=== PATIENT | male | born 1950 ===

== ENCOUNTER 2017-02-12 17:50 | Inpatient (IN) ==
[2017-02-12] MEDS ORDERED: 0.9 % Sodium Chloride 1,000 ML IVC ONE ×3 (17:56→20:33)
[2017-02-12] MEDS ORDERED: *HR* Alteplase (Cathflo) 2 MG VIAL IVP ONE (17:58)
--- NOTE | 2017-02-12 19:04 | Emergency Department Note ---
Disposition Clinical Impression: Septic shock Disposition: Admitted As Inpatient Referrals: NO,PCP [Primary Care Provider] - Forms: ED Satisfaction Letter, Work/School Release General Adult HPI - General Chief complaint: ED General Medical Stated complaint: PICC line not working Time Seen by Provider: 02/12/17 17:53 Source: patient Limitations: no limitations Nursing Notes Reviewed: Yes Vital Signs Reviewed: Yes - History of Present Illness HPI Narrative: Patient comes in today due to dysfunction of his PICC line. Patient receives TPN through his PICC line and the daughter noted that the confusion has stopped and was beeping. She attempted to flush the PICC line but was unsuccessful. Daughter also states notes that patient states that he is at problems with burning with urination. Patient denies pain denies shortness of breath. Patient denies cough associated. Per nursing report patient is tachycardic and is a little blood pressure. Pain Scale: 0 - Related Data Home Medications Medication Instructions Recorded Confirmed Acetaminophen [Tylenol] 1,000 mg PO Q6HR 09/09/16 09/09/16 Aspirin [Lo-Dose Aspirin EC] 81 mg PO DAILY 09/09/16 09/09/16 Docusate [Colace] 100 mg PO BID 09/09/16 09/09/16 Febuxostat [Uloric] 20 mg PO DAILY 09/09/16 09/09/16 Ibuprofen [Motrin] 400 mg PO Q6HR 09/09/16 09/09/16 Nitrofurantoin Macrocrystal 100 mg PO BID 09/09/16 09/09/16 [Nitrofurantoin] OxyCODONE/APAP 5/325 [Percocet 1 each PO Q6HR PRN 09/09/16 09/09/16 5/325 MG] Simethicone [Gas-X] 540 mg PO 09/09/16 Valsartan/Hydrochlorothiazide 0.5 tab PO DAILY 09/09/16 09/09/16 [Diovan Hct 160-25 mg Tablet] Previous Rx's Medication Instructions Recorded Amoxicillin/Clavulanate [Augmentin] 875 mg PO BIDWM #10 tablet 09/09/16 Allergies Allergy/AdvReac Type Severity Reaction Status Date / Time No Known Allergies Allergy Verified 09/09/16 17:57 All systems ED: reviewed and negative except as stated. Past Medical History - Past Medical History Source: patient Medical history: Reports: hypertension Psychiatric history: Reports: no psych history - Social History Smoking Status: Never smoker Smokeless Tobacco Status: No Alcohol use: Reports: none Drug use: Reports: none Physical Exam - General Limitations: altered mental status General appearance: alert - Head Head exam: atraumatic, normocephalic, normal inspection - Eye Eye exam: Present: normal appearance, PERRL, EOMI - ENT ENT exam: normal exam, normal oropharynx, mucous membranes moist Course Vital Signs Temperature 97.5 F L 02/12/17 18:00 Pulse Rate 108 02/12/17 18:00 Respiratory Rate 24 02/12/17 18:00 Blood Pressure 81/52 02/12/17 18:00 O2 Sat by Pulse Oximetry 95 02/12/17 18:00 Temperature 98.3 F 02/12/17 23:22 Pulse Rate 98 02/13/17 00:04 Respiratory Rate 22 02/13/17 00:04 Blood Pressure 103/53 02/13/17 00:04 O2 Sat by Pulse Oximetry 97 02/13/17 00:04 Oxygen Delivery Oxygen Delivery Room Air Procedures - Central Line Placement Right IJ Central Line Catheter Replacement*: Yes Central Line Insertion: emergent Consent Obtained: written consent Procedural Pause: verify patient name and date of , khadijah and assess the site, assemble equipment and verify supplies, perform hand hygiene Patient Placed on Monitor/Pulse Ox: Yes During the Procedure: clinician is wearing sterile gloves, cap, mask,& gown during insertion, sterile field and sterile technique are maintained, patient's face is covered with drape or mask and wearing a cap, everyone in room is wearing a mask Central Line Prep: Chlorhexidine scrub Prep the Procedure Site: apply chloraprep to the skin using a back and forth scrubbing motion, drape the patient with a full body drape Local Anesthetic: lidocaine 1% Amount of anesthesia used (mL): 3 Ultrasound Used for Placement: Yes Central Line Lumen Inserted: triple Post Procedure: sutured in place, good blood return, all ports aspirated, flushed, capped, sterile dressing applied, guide wire removed and visualized Post Procedure X-Ray: tip of catheter in good position, no pneumothorax seen Patient Tolerated Procedure: well Complications: none Name of Clinician Inserting Central Line: Dr. Burt placed the central line under direct supervision Dr. Jose Medical Decision Making - MDM Narrative Medical decision making narrative: Discussed this patient hospitalist service. The hospitalist was concerned about patient's medical problems and discussed the patient will be better served at his original hospital. Discussed to the patient to discuss with his doctor at [facility] who stated the patient is a here and the patient prefers to stay at this facility. I relayed this to the hospitalist direct sales professional who agreed to accept the patient and we will request the records from his previous hospital stay. - Lab Data Lab results reviewed: Yes I reviewed the patient's lab results. Result diagrams: 02/12/17 19:30 02/12/17 19:30 Lab Results 02/12/17 02/12/17 02/12/17 Range/Units 19:30 19:30 19:30 WBC 11.2 H (4.3-11.1) K/mcL RBC 3.67 L (4.19-5.50) M/mcL Hgb 10.1 L (12.9-16.9) g/dL Hct 32.3 L (37.5-50.1) % MCV 88.0 (83.0-100.0) fL MCH 27.5 L (28.0-33.3) pg MCHC 31.3 L (31.6-35.5) g/dL RDW 14.7 H (11.5-14.5) % Plt Count 146 (140-400) K/mcL MPV 10.5 (9.4-12.4) fL Seg Neutrophils % 68.0 % Band Neutrophils % 27.0 H (0-4) % Lymphocytes % 1.0 % Monocytes % 1.0 % Eosinophils % 2.0 % Myelocytes % 1.0 H (0) % Neutrophils # 10.6 H (1.6-8.9) K/mcL Lymphocytes # 0.1 L (0.6-4.6) K/mcL Monocytes # 0.1 (0.0-1.3) K/mcL Eosinophils # 0.2 (0.0-0.6) K/mcL Platelet Estimate Normal (Normal) Large Platelets Present A (Not Present) PT 11.2 (9.4-12.1) Seconds INR 1.0 APTT 25.0 L (26.0-36.0) Seconds ABG pH (7.32-7.45) pH Units ABG pCO2 (35-45) mmHg ABG pO2 (85-104) mmHg ABG HCO3 (21-27) mEQ/L ABG Total CO2 (20-26) mEq/L ABG O2 Saturation (95-98) % ABG Base Excess (-2.0 to 3.0) mEq/L Blood Gas Modality Inspired O2 % Sodium 133 L (136-145) mEq/L Potassium 3.0 L (3.5-4.5) mEq/L Chloride 104 (98-109) mEq/L Carbon Dioxide 17 L (19-29) mEq/L BUN 33 H (8-26) mg/dL Creatinine 1.61 H (0.72-1.25) mg/dL Est GFR ( Amer) 52 L (> 60) Est GFR (Non-Af Amer) 43 L (> 60) BUN/Creatinine Ratio 20 (6-26) Glucose 71 (70-99) mg/dL Calculated Osmolality 282 (280-300) Lactic Acid (0.5-2.2) mmol/L Calcium 9.4 (8.6-10.8) mg/dL Phosphorus 1.6 L (2.3-4.7) mg/dL Magnesium 1.3 L (1.6-2.6) mg/dL Total Bilirubin 1.8 H (0.2-1.2) mg/dL Direct Bilirubin 1.2 H (0.0-0.5) mg/dL Indirect Bilirubin 0.6 (0.0-1.2) mg/dL AST 35 H (5-34) Units/L ALT 37 (0-55) Units/L Alkaline Phosphatase 234 H (38-126) Units/L Troponin I (0-0.03) ng/mL Serum Total Protein 6.6 (6.0-8.3) g/dL Albumin 2.2 L (3.5-5.0) g/dL Globulin 4.4 H (2.4-3.5) g/dL Albumin/Globulin Ratio 0.5 L (1.1-2.2) Ur Specimen Adequacy Urine Color (Yellow) Urine Clarity (Clear) Urine pH (5.0-8.0) pH Units Ur Specific [place] (1.010-1.025) Urine Protein (Neg-Trace) mg/dL Urine Glucose (UA) (Normal) mg/dL Urine Ketones (Negative) mg/dL Urine Blood (Negative) Urine Nitrite (Negative) Urine Bilirubin (Negative) Urine Urobilinogen (Normal) mg/dL Ur Leukocyte Esterase (Negative) Urine Microscopic RBC (0-3) per hpf Urine Microscopic WBC (0-3) per hpf Ur Squamous Epith Cells (None-Few) per lpf Amorphous Sediment (Few) Urine Bacteria (None-Few) per hpf Hyaline Casts Granular Casts (None Seen) per lpf Ur Culture Indicated? (NO) Blood Type Antibody Screen 02/12/17 02/12/17 02/12/17 Range/Units 19:30 19:30 19:30 WBC (4.3-11.1) K/mcL RBC (4.19-5.50) M/mcL Hgb (12.9-16.9) g/dL Hct (37.5-50.1) % MCV (83.0-100.0) fL MCH (28.0-33.3) pg MCHC (31.6-35.5) g/dL RDW (11.5-14.5) % Plt Count (140-400) K/mcL MPV (9.4-12.4) fL Seg Neutrophils % % Band Neutrophils % (0-4) % Lymphocytes % % Monocytes % % Eosinophils % % Myelocytes % (0) % Neutrophils # (1.6-8.9) K/mcL Lymphocytes # (0.6-4.6) K/mcL Monocytes # (0.0-1.3) K/mcL Eosinophils # (0.0-0.6) K/mcL Platelet Estimate (Normal) Large Platelets (Not Present) PT (9.4-12.1) Seconds INR APTT (26.0-36.0) Seconds ABG pH (7.32-7.45) pH Units ABG pCO2 (35-45) mmHg ABG pO2 (85-104) mmHg ABG HCO3 (21-27) mEQ/L ABG Total CO2 (20-26) mEq/L ABG O2 Saturation (95-98) % ABG Base Excess (-2.0 to 3.0) mEq/L Blood Gas Modality Inspired O2 % Sodium (136-145) mEq/L Potassium (3.5-4.5) mEq/L Chloride (98-109) mEq/L Carbon Dioxide (19-29) mEq/L BUN (8-26) mg/dL Creatinine (0.72-1.25) mg/dL Est GFR ( Amer) (> 60) Est GFR (Non-Af Amer) (> 60) BUN/Creatinine Ratio (6-26) Glucose (70-99) mg/dL Calculated Osmolality (280-300) Lactic Acid 4.9 H* (0.5-2.2) mmol/L Calcium (8.6-10.8) mg/dL Phosphorus (2.3-4.7) mg/dL Magnesium (1.6-2.6) mg/dL Total Bilirubin (0.2-1.2) mg/dL Direct Bilirubin (0.0-0.5) mg/dL Indirect Bilirubin (0.0-1.2) mg/dL AST (5-34) Units/L ALT (0-55) Units/L Alkaline Phosphatase (38-126) Units/L Troponin I 0.25 H* (0-0.03) ng/mL Serum Total Protein (6.0-8.3) g/dL Albumin (3.5-5.0) g/dL Globulin (2.4-3.5) g/dL Albumin/Globulin Ratio (1.1-2.2) Ur Specimen Adequacy Urine Color (Yellow) Urine Clarity (Clear) Urine pH (5.0-8.0) pH Units Ur Specific [place] (1.010-1.025) Urine Protein (Neg-Trace) mg/dL Urine Glucose (UA) (Normal) mg/dL Urine Ketones (Negative) mg/dL Urine Blood (Negative) Urine Nitrite (Negative) Urine Bilirubin (Negative) Urine Urobilinogen (Normal) mg/dL Ur Leukocyte Esterase (Negative) Urine Microscopic RBC (0-3) per hpf Urine Microscopic WBC (0-3) per hpf Ur Squamous Epith Cells (None-Few) per lpf Amorphous Sediment (Few) Urine Bacteria (None-Few) per hpf Hyaline Casts Granular Casts (None Seen) per lpf Ur Culture Indicated? (NO) Blood Type O NEGATIVE Antibody Screen NEGATIVE 02/12/17 02/12/17 Range/Units 20:37 20:50 WBC (4.3-11.1) K/mcL RBC (4.19-5.50) M/mcL Hgb (12.9-16.9) g/dL Hct (37.5-50.1) % MCV (83.0-100.0) fL MCH (28.0-33.3) pg MCHC (31.6-35.5) g/dL RDW (11.5-14.5) % Plt Count (140-400) K/mcL MPV (9.4-12.4) fL Seg Neutrophils % % Band Neutrophils % (0-4) % Lymphocytes % % Monocytes % % Eosinophils % % Myelocytes % (0) % Neutrophils # (1.6-8.9) K/mcL Lymphocytes # (0.6-4.6) K/mcL Monocytes # (0.0-1.3) K/mcL Eosinophils # (0.0-0.6) K/mcL Platelet Estimate (Normal) Large Platelets (Not Present) PT (9.4-12.1) Seconds INR APTT (26.0-36.0) Seconds ABG pH 7.46 H (7.32-7.45) pH Units ABG pCO2 28 L (35-45) mmHg ABG pO2 73 L (85-104) mmHg ABG HCO3 19.9 L (21-27) mEQ/L ABG Total CO2 20.8 (20-26) mEq/L ABG O2 Saturation 95 (95-98) % ABG Base Excess -3.3 L (-2.0 to 3.0) mEq/L Blood Gas Modality RA Inspired O2 21 % Sodium (136-145) mEq/L Potassium (3.5-4.5) mEq/L Chloride (98-109) mEq/L Carbon Dioxide (19-29) mEq/L BUN (8-26) mg/dL Creatinine (0.72-1.25) mg/dL Est GFR ( Amer) (> 60) Est GFR (Non-Af Amer) (> 60) BUN/Creatinine Ratio (6-26) Glucose (70-99) mg/dL Calculated Osmolality (280-300) Lactic Acid (0.5-2.2) mmol/L Calcium (8.6-10.8) mg/dL Phosphorus (2.3-4.7) mg/dL Magnesium (1.6-2.6) mg/dL Total Bilirubin (0.2-1.2) mg/dL Direct Bilirubin (0.0-0.5) mg/dL Indirect Bilirubin (0.0-1.2) mg/dL AST (5-34) Units/L ALT (0-55) Units/L Alkaline Phosphatase (38-126) Units/L Troponin I (0-0.03) ng/mL Serum Total Protein (6.0-8.3) g/dL Albumin (3.5-5.0) g/dL Globulin (2.4-3.5) g/dL Albumin/Globulin Ratio (1.1-2.2) Ur Specimen Adequacy See below A Urine Color Dark Yellow (Yellow) Urine Clarity Turbid A (Clear) Urine pH 5.5 (5.0-8.0) pH Units Ur Specific [place] 1.022 (1.010-1.025) Urine Protein 100 H (Neg-Trace) mg/dL Urine Glucose (UA) Normal (Normal) mg/dL Urine Ketones Negative (Negative) mg/dL Urine Blood Moderate H (Negative) Urine Nitrite Negative (Negative) Urine Bilirubin Small H (Negative) Urine Urobilinogen Normal (Normal) mg/dL Ur Leukocyte Esterase Trace H (Negative) Urine Microscopic RBC 5-15 H (0-3) per hpf Urine Microscopic WBC 3-5 H (0-3) per hpf Ur Squamous Epith Cells Many H (None-Few) per lpf Amorphous Sediment Many H (Few) Urine Bacteria Moderate H (None-Few) per hpf Hyaline Casts Test Not Performed Granular Casts Few H (None Seen) per lpf Ur Culture Indicated? YES A (NO) Blood Type Antibody Screen - Radiology Data Radiology results reviewed: Yes I reviewed the patient's radiology results. Abdomen/Pelvis CT 02/12/17 22:24 IMPRESSION: 1. Well-positioned ERCP stent. No evidence of biliary dilation. 2. Cholelithiasis but no evidence of distention of the gallbladder. 3. Ventral fat containing hernia. D/ / 02/12/2017 23:31:32 Liyah Be MD / gretchen Interpreting Provider: Liyah Be MD Chest X-Ray 02/12/17 23:22 IMPRESSION: 1. Well-positioned right-sided central venous line. No pneumothorax identified. 2. Right lung base opacity may reflect partial atelectasis. Pneumonia not excluded. D/ / Satinder Boateng MD / Satinder Boateng MD Interpreting Provider: Satinder Boateng MD - EKG Data EKG #1 EKG attestation: Yes I reviewed and interpreted this EKG. EKG results narrative: Sinus tachycardia, left bundle branch block. Left bundle branch block appeared to be on previous EKG. Critical Care Time Total Critical Care Time: 150 Attestation: Critical care performed: Time is exclusive of separately billable procedures. Time includes: direct patient care, patient reassessment, coordination of patient care, interpretation of data (laboratory data, radiology data, and respiratory data), review of patient's medical records, medical consultation and documentation of patient care. Procedures included in critical care time: Procedures excluded from critical care time:
[2017-02-12 19:38] LABS: Hematocrit 32.3 % (37.5-50.1); Hemoglobin 10.1 g/dL (12.9-16.9); Mean Corpuscular HGB Conc 31.3 g/dL (31.6-35.5); Mean Corpuscular Hemoglobin 27.5 pg (28.0-33.3); Mean Platelet Volume 10.5 fL (9.4-12.4); Monocytes # 0.1 K/mcL (0.0-1.3); Platelet Count 146 K/mcL (140-400); Red Blood Count 3.67 M/mcL (4.19-5.50); Red Cell Distribution Width 14.7 % (11.5-14.5)
[2017-02-12 19:49] LABS: Prothrombin Time 11.2 Seconds (9.4-12.1)
[2017-02-12 19:53] LABS: Albumin 2.2 g/dL (3.5-5.0); Albumin/Globulin Ratio 0.5 (1.1-2.2); Bilirubin,Direct 1.2 mg/dL (0.0-0.5); Bilirubin,Indirect 0.6 mg/dL (0.0-1.2); Bilirubin,Total 1.8 mg/dL (0.2-1.2); Calcium 9.4 mg/dL (8.6-10.8); Globulin 4.4 g/dL (2.4-3.5); Magnesium 1.3 mg/dL (1.6-2.6); Phosphorous 1.6 mg/dL (2.3-4.7); Total Protein 6.6 g/dL (6.0-8.3)
[2017-02-12 20:14] LABS: Eosinophils # 0.2 K/mcL (0.0-0.6); Large Platelets Present (Not Present); Lymphocytes # 0.1 K/mcL (0.6-4.6); Neutrophils # 10.6 K/mcL (1.6-8.9)
[2017-02-12 20:16] LABS: Platelet Estimate Normal (Normal)
[2017-02-12 20:44] LABS: ABG Base Excess -3.3 mEq/L (-2.0 to 3.0); ABG HCO3 19.9 mEQ/L (21-27); ABG Oxygen Saturation 95 % (95-98); ABG PCO2 28 mmHg (35-45); ABG PH 7.46 pH Units (7.32-7.45); ABG PO2 73 mmHg (85-104); ABG TCO2 20.8 mEq/L (20-26)
[2017-02-12 20:46] LABS: Blood Gas FiO2 21 %
[2017-02-12 21:07] LABS: Bilirubin,Urine Small (Negative); Blood,Urine Moderate (Negative); Clarity,Urine Turbid (Clear); Color,Urine Dark Yellow (Yellow); Glucose,Urine (UA) Normal (Normal); Ketones,Urine Negative (Negative); Leukocyte Esterase,Urine Trace (Negative); Nitrite,Urine Negative (Negative); PH,Urine 5.5 pH Units (5.0-8.0); Protein,Urine 100 mg/dL (Neg-Trace); Specific Gravity,Urine 1.022 (1.010-1.025); Urobilinogen,Urine Normal (Normal)
[2017-02-12 21:10] LABS: Squamous Epithelial Cell,Urine Many per lpf (None-Few)
[2017-02-12] MEDS ORDERED: Piperacillin/Tazobactam 3.375 GM in D5% in Water (Mini-Bag+) 100 ML IVPB ONE (21:11)
[2017-02-12] MEDS ORDERED: Norepinephrine 4 MG in D5% in Water 250 ML IVC SCH (21:15)
[2017-02-12 21:21] LABS: Granular Casts,Urine Few per lpf (None Seen)
[2017-02-12 21:22] LABS: Amorphous Sediment,Urine Many (Few); Bacteria,Urine Moderate per hpf (None-Few)
[2017-02-12] MEDS ORDERED: *HR* FentaNYL (PF) 100 MCG/2 ML VIAL IVP ONE (21:57)
[2017-02-13] MEDS ORDERED: Acetaminophen 325 MG TABLET PO PRN (01:21)
[2017-02-13] MEDS ORDERED: Ondansetron 4 MG/2 ML VIAL IVP PRN (01:21)
[2017-02-13] MEDS ORDERED: *HR* Morphine 2 MG/ML SYRINGE IVP PRN (01:21)
[2017-02-13] MEDS ORDERED: Naloxone 0.4 MG/ML INJ IVP PRN (01:21)
[2017-02-13] MEDS ORDERED: Cefepime HCl 1,000 MG in D5% in Water (Mini-Bag+) 100 ML IVPB SCH ×2 (01:28→14:30)
[2017-02-13] MEDS ORDERED: Potassium Chloride 40 MEQ/200 ML BAG IVPB PRN (01:30)
--- NOTE | 2017-02-13 01:42 | Internal Med History&Physical ---
Date of Encounter: 02/13/17 Time of Encounter: 01:36 Assessment and Plan (1) Septic shock Current visit: Yes Status: Acute Septic shock secondary to possibly healthcare stated pneumonia present upon admission versus urinary tract infection Continue aggressive hydration Norepinephrine Switch to vancomycin, Levaquin and cefepime, Cultures pending Pulmonary consult Protonix IV for GI prophylaxis and some tenderness heparin for the deep reflexes. The patient will be admitted as inpatient, expected to stay more than 2 midnights. Full code. Time spent on this critical care assessment 45 minutes. High risk of complications from septic shock PICC line will need to be replaced once blood cultures come back negative (2) Healthcare-associated pneumonia Current visit: Yes Status: Acute (3) UTI (urinary tract infection) Current visit: Yes Status: Acute Qualifiers: Urinary tract infection type: acute cystitis Hematuria presence: with hematuria Qualified Code(s): N30.01 - Acute cystitis with hematuria (4) Ileostomy in place Current visit: Yes Status: Acute consequence of multiple reconstructive abdominal surgeries after perforation of his gallbladder and bowel (5) Prostate cancer Current visit: Yes Status: Acute (6) Hypokalemia Current visit: Yes Status: Acute Replete as needed Internal Medicine - H&P: HPI Chief complaint: Nonfunctional PICC line Admitted From: Emergency Dept History of present illness: Mr. Fraga is a 66 year old male with a past medical history of prostate cancer who developed multiple complications at [facility] after his bowels and his gallbladder Perforated during the surgical procedure. The patient has been receiving TPN, he was discharged from the hospital 2 months ago and came today because his PICC line was not flushing and he was not able to continue his TPN. Hearing emergency room she mentioned that he has been feeling weaker had a fever of 102 two days ago, his heart rate was 108 his blood pressure dropped to the 70s. Ultrasound count is 11.2 potassium 3 sodium 133 creatinine 1.61 there are no baseline values. Troponin 0.25 but he denies any chest pain, lactic acid of 4.9. Urinalysis showed moderate bacteria, 3-5 white blood cells, denies dysuria. PH is 7.46 PCO2 28 PCO2 73. Patient was started on norepinephrine, Zosyn and had a central line placed at the ER. CT scan of the abdomen shows a no perforations and ERCP stent is noticeable but there is a right lower lobe opacity and pneumonia cannot be excluded. Chest x- ray shows correct placement of right central catheter. Patient is feeling very weak says that he has been bringing up clear secretions. The option about being transferred to [facility] was discussed with the ER per the patient prefers to stay here. Past Med Surg Social Fam HX - Past Medical History Medical history: hypertension, other (Prostate cancer status post surgical procedure, gout, hypertension, cholelithiasis, abdominal wound infection with Enterobacter pansensitive, septic shock, PICC line infection) Psychiatric history: no psych history - Past Surgical History Surgical History: other (Extensive abdominal surgeries, ileostomy, PICC line, prostate surgery, ) - Social History Smoking Status: Never smoker Smokeless Tobacco Status: No Alcohol use: none Drug use: none - Additional Family History Additional family history: Father with lung cancer Internal Medicine - H&P: Meds Acetaminophen [Tylenol] 1,000 mg PO Q6HR 09/09/16 [History] Amoxicillin/Clavulanate [Augmentin] 875 mg PO BIDWM #10 tablet 09/09/16 [Rx] Aspirin [Lo-Dose Aspirin EC] 81 mg PO DAILY 09/09/16 [History] Docusate [Colace] 100 mg PO BID 09/09/16 [History] Febuxostat [Uloric] 20 mg PO DAILY 09/09/16 [History] Ibuprofen [Motrin] 400 mg PO Q6HR 09/09/16 [History] Nitrofurantoin Macrocrystal [Nitrofurantoin] 100 mg PO BID 09/09/16 [History] OxyCODONE/APAP 5/325 [Percocet 5/325 MG] 1 each PO Q6HR PRN 09/09/16 [History] Simethicone [Gas-X] 540 mg PO 09/09/16 [History] Valsartan/Hydrochlorothiazide [Diovan Hct 160-25 mg Tablet] 0.5 tab PO DAILY 09/14 [History] Allergies No Known Allergies Allergy (Verified 09/09/16 17:57) All Systems PM: A 10-system review of systems was performed and is negative for pertinent findings except as documented above in the HPI. Review of systems: No chest pain, shortness of breath, no abdominal pain. Other systems out of the 10 reviewed were negative - Constitutional Vitals: Temp Pulse Resp BP Pulse Ox 98.3 F 98 18 98/57 97 02/12/17 23:22 02/13/17 00:04 02/13/17 00:44 02/13/17 00:44 02/13/17 00:04 General appearance: Present: A&O X 3 - Head Head exam: Present: atraumatic, normocephalic - Eye Eye exam: Present: PERRL, conjuntiva pink, sclera anicteric Pupils: Present: PERRL - Neck Neck exam general surgery: Present: supple, trachea midline. Absent: lymphadenopathy - Respiratory Respiratory exam: Present: CTAB, rales (Right basilar crackles). Absent: accessory muscle use, rhonchi, wheezes - Cardiovascular Cardiovascular exam: Present: RRR, +S1, +S2. Absent: diastolic murmur, gallop, rubs, systolic murmur - GI/Abdominal GI/Abdominal exam: Present: distended, normal bowel sounds, soft, no peritoneal signs. Absent: tenderness Additional comments: Large abdominal wound with a central ileostomy and a large bag of collection - Extremities Exam Extremities exam: Present: warm, radial pulses palpable and symetrical. Absent : calf tenderness, cyanotic, pedal edema - Neurological Exam Neurological exam: Present: CN II-XII intact, oriented X3, no focal deficits. Absent: pronater drift, facial droop, speech deficit - Skin Skin exam: Present: dry, intact Additional comments: PICC line in left upper extremity, triple-lumen catheter in the right IJ Watkins catheter in place Internal Med - H&P Results - Labs CBC & Chem 7: 02/12/17 19:30 02/12/17 19:30
[2017-02-13] MEDS: 0.9 % Sodium Chloride 1,000 ML IVC SCH ×11 (01:53→13:44)
[2017-02-13] MEDS: Levofloxacin 750 MG/150 ML 750 MG/150 ML BAG IVPB SCH ×2 (01:54→08:41)
[2017-02-13] MEDS ORDERED: Vancomycin 1,250 MG in D5% in Water 250 ML IVPB SCH (02:00)
[2017-02-13] MEDS ORDERED: Vancomycin 1,750 MG in D5% in Water 500 ML IVPB SCH (03:00)
[2017-02-13 04:05] LABS: Mean Corpuscular HGB Conc 32.6 g/dL (31.6-35.5); Mean Corpuscular Hemoglobin 28.3 pg (28.0-33.3); Mean Corpuscular Volume 86.8 fL (83.0-100.0); Mean Platelet Volume 10.6 fL (9.4-12.4); Platelet Count 106 K/mcL (140-400); Red Blood Count 2.65 M/mcL (4.19-5.50)
[2017-02-13 04:08] LABS: Hemoglobin 7.5 g/dL (12.9-16.9); INR 1.2; Prothrombin Time 12.5 Seconds (9.4-12.1)
[2017-02-13 04:25] LABS: Albumin/Globulin Ratio 0.5 (1.1-2.2); Bilirubin,Total 1.5 mg/dL (0.2-1.2); Globulin 3.6 g/dL (2.4-3.5); Potassium 3.5 mEq/L (3.5-4.5); Total Protein 5.3 g/dL (6.0-8.3)
[2017-02-13 04:28] LABS: Albumin 1.7 g/dL (3.5-5.0); Calcium 7.8 mg/dL (8.6-10.8)
[2017-02-13 04:57] LABS: Band Neutrophils % 27.3 % (0-4); Lymphocytes # 0.8 K/mcL (0.6-4.6); Lymphocytes % 5.5 %; Monocytes # 0.8 K/mcL (0.0-1.3); Monocytes % 5.5 %; Neutrophils # 13.1 K/mcL (1.6-8.9); Segmented Neutrophils % 61.8 %
[2017-02-13 04:58] LABS: Platelet Estimate Slight Decrease (Normal)
[2017-02-13] MEDS ORDERED: *HR* Heparin 5,000 UNIT/ML VIAL SQ SCH (08:00)
[2017-02-13] MEDS: Norepinephrine 4 MG in D5% in Water 250 ML IVC SCH ×2 (08:11→10:19)
--- NOTE | 2017-02-13 08:20 | Pulmonology Consult Note ---
<Mitesh Helton - Last Filed: 02/13/17 14:05> Date of Encounter: 02/13/17 Time of Encounter: 08:16 Assessment and Plan (1) Septic shock Status: Acute History of infected PICC line. Likely secondary to infected PICC line. PICC line will be removed with culture of the tip of the catheter. 2 blood cultures drawn while in the ER. Urine culture pending. The patient received 6L of fluid with an additional liter ordered. The patient remains on Norepinephrine drip for pressure support. Patient is on IV antibiotics Cefepime, levofloxacin, and vancomycin at this time. The patient will be transferred to [place] for continuity of his care. Previously seen at [place] for his original surgery on [address] Ha. (2) UTI (urinary tract infection) Status: Acute Urine culture pending. Patient is currently on cefepime, levoloxacin, and vancomycin. Qualifiers: Urinary tract infection type: acute cystitis Hematuria presence: with hematuria Qualified Code(s): N30.01 - Acute cystitis with hematuria (3) TABBY (acute kidney injury) Status: Acute Secondary to septic shock. Creatinine elevated at 1.55 improved from 1.61 on 02/12. The patient has had 6L of fluid repletion with an additional liter ordered. The patient is on vancomycin with pharmacy dosing. 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 (6) DVT prophylaxis Status: Acute On heparin SQ Protonix for GI prophylaxis History of Present Illness Consult date: 02/13/17 Requesting physician: Mickey Parsons Reason for consult: other (septic shock) Chief complaint: PICC line not working History of present illness: This is a 66 year old male with PMH significant for hypertension, prostate cancer status post surgery, gout, abdominal wound infection, and previous PICC line infection who presented to the ER per the recommendations of his surgeon Dr. Ha as his PICC line was not flushing starting 02/11. The patient reports he has had a previous PICC line infection, which needed to be removed. He has PICC lines chronically for TPN as he has an ileostomy due to complications of a prostate surgery for prostate cancer in September 06, 2016. The patient states he did have have a full diet at times when he was not on TPN , the last meal he has eaten by mouth was 2 months ago. The patient received 6L of fluid and is currently on Norepinephrine for septic shock. He is on cefepime , levofloxacin, and vancomycin for antibiotic coverage. Blood cultures were drawn in the ER. His PICC line will be removed with culture ordered fro the tip of the catheter. The patient states that he is willing and now wanting transfer to [place] for continuation of his care as that is where he received his surgery. Past Med Surg Social Fam HX - Past Medical History Medical history: hypertension, other (Prostate cancer status post surgical procedure, gout, hypertension, cholelithiasis, abdominal wound infection with Enterobacter pansensitive, septic shock, PICC line infection) Psychiatric history: no psych history - Past Surgical History Surgical History: other (Extensive abdominal surgeries, ileostomy, PICC line, prostate surgery, ) - Social History Smoking Status: Never smoker Smokeless Tobacco Status: No Alcohol use: none Drug use: none Medications and Allergies Acetaminophen [Tylenol] 1,000 mg PO Q6HR 09/09/16 [History] Aspirin [Lo-Dose Aspirin EC] 81 mg PO DAILY 09/09/16 [History] Ibuprofen [Motrin] 400 mg PO Q6HR 09/09/16 [History] OxyCODONE/APAP 5/325 [Percocet 5/325 MG] 1 tab PO Q6HR PRN 09/09/16 [History] Metoprolol [Lopressor] 25 mg PO BID 02/13/17 [History] Pantoprazole Sodium [Protonix] 40 mg PO DAILY 02/13/17 [History] Allergies No Known Allergies Allergy (Verified 09/09/16 17:57) All Systems: A 10-system review of systems was performed and is negative for pertinent findings except as documented above in the HPI. - Constitutional Constitutional: chills, fever(s), no weakness - EENT Eyes: no loss of vision Ears: no decreased hearing Nose, mouth and throat: no dizziness, no dysphagia - Cardiovascular Cardiovascular: diaphoresis (yesterday), no chest pain, no dyspnea, no palpitations, no syncope - Respiratory Respiratory: no cough, no hemoptysis - Gastrointestinal Gastrointestinal: no abdominal pain, no diarrhea - Genitourinary Genitourinary: no dysuria - Musculoskeletal Musculoskeletal: joint pain (left great toe) - Integumentary Integumentary: no rash - Neurological Neurological: no dizziness, no numbness, no tingling, no weakness Physical Examination Vital Signs: Vital Signs, Last 4 Hours Temp Pulse Resp BP 02/13/17 07:00 97.8 F 02/13/17 06:00 96 16 95/55 02/13/17 05:00 91 16 90/56 02/13/17 04:41 99.1 F General appearance: no acute distress, alert Eyes: nonicteric ENT: oropharynx moist Neck: supple Effort: normal Auscultation: bilateral: clear Cardiovascular: regular rate and rhythm Gastrointestinal: normoactive bowel sounds, other (iliostomy present) Extremities: no cyanosis, other (swelling of left great toe) Musculoskeletal: no deformities normal mental status, non-focal exam mood appropriate Results - Laboratory Findings CBC and BMP: 02/13/17 03:40 02/13/17 03:40 ABG ABG pH 7.46 pH Units (7.32-7.45) H 02/12/17 20:37 ABG pCO2 28 mmHg (35-45) L 02/12/17 20:37 ABG pO2 73 mmHg (85-104) L 02/12/17 20:37 ABG O2 Saturation 95 % (95-98) 02/12/17 20:37 PT/INR, D-dimer PT 12.5 Seconds (9.4-12.1) H 02/13/17 03:40 Abnormal lab findings: Abnormal lab results WBC 14.7 K/mcL (4.3-11.1) H 02/13/17 03:40 RBC 2.65 M/mcL (4.19-5.50) L 02/13/17 03:40 Hgb 7.5 g/dL (12.9-16.9) L D 02/13/17 03:40 Hct 23.0 % (37.5-50.1) L 02/13/17 03:40 RDW 15.0 % (11.5-14.5) H 02/13/17 03:40 Plt Count 106 K/mcL (140-400) L 02/13/17 03:40 Band Neutrophils % 27.3 % (0-4) H 02/13/17 03:40 Myelocytes % 1.0 % (0) H 02/12/17 19:30 Neutrophils # 13.1 K/mcL (1.6-8.9) H 02/13/17 03:40 Platelet Estimate Slight Decrease (Normal) L 02/13/17 03:40 Large Platelets Present (Not Present) A 02/12/17 19:30 PT 12.5 Seconds (9.4-12.1) H 02/13/17 03:40 APTT 25.0 Seconds (26.0-36.0) L 02/12/17 19:30 ABG pH 7.46 pH Units (7.32-7.45) H 02/12/17 20:37 ABG pCO2 28 mmHg (35-45) L 02/12/17 20:37 ABG pO2 73 mmHg (85-104) L 02/12/17 20:37 ABG HCO3 19.9 mEQ/L (21-27) L 02/12/17 20:37 ABG Base Excess -3.3 mEq/L (-2.0 to 3.0) L 02/12/17 20:37 Sodium 134 mEq/L (136-145) L 02/13/17 03:40 BUN 35 mg/dL (8-26) H 02/13/17 03:40 Creatinine 1.55 mg/dL (0.72-1.25) H 02/13/17 03:40 Est GFR ( Amer) 54 (> 60) L 02/13/17 03:40 Est GFR (Non-Af Amer) 45 (> 60) L 02/13/17 03:40 Glucose 109 mg/dL (70-99) H 02/13/17 03:40 POC Glucose 91 (58-89) H 02/13/17 00:55 Calcium 7.8 mg/dL (8.6-10.8) L D 02/13/17 03:40 Phosphorus 1.6 mg/dL (2.3-4.7) L 02/12/17 19:30 Magnesium 1.3 mg/dL (1.6-2.6) L 02/12/17 19:30 Total Bilirubin 1.5 mg/dL (0.2-1.2) H 02/13/17 03:40 Direct Bilirubin 1.2 mg/dL (0.0-0.5) H 02/12/17 19:30 Alkaline Phosphatase 167 Units/L (38-126) H 02/13/17 03:40 Troponin I 0.14 ng/mL (0-0.03) H* 02/13/17 03:40 Serum Total Protein 5.3 g/dL (6.0-8.3) L 02/13/17 03:40 Albumin 1.7 g/dL (3.5-5.0) L D 02/13/17 03:40 Globulin 3.6 g/dL (2.4-3.5) H 02/13/17 03:40 Albumin/Globulin Ratio 0.5 (1.1-2.2) L 02/13/17 03:40 Ur Specimen Adequacy See below A 02/12/17 20:50 Urine Clarity Turbid (Clear) A 02/12/17 20:50 Urine Protein 100 mg/dL (Neg-Trace) H 02/12/17 20:50 Urine Blood Moderate (Negative) H 02/12/17 20:50 Urine Bilirubin Small (Negative) H 02/12/17 20:50 Ur Leukocyte Esterase Trace (Negative) H 02/12/17 20:50 Urine Microscopic RBC 5-15 per hpf (0-3) H 02/12/17 20:50 Urine Microscopic WBC 3-5 per hpf (0-3) H 02/12/17 20:50 Ur Squamous Epith Cells Many per lpf (None-Few) H 02/12/17 20:50 Amorphous Sediment Many (Few) H 02/12/17 20:50 Urine Bacteria Moderate per hpf (None-Few) H 02/12/17 20:50 Granular Casts Few per lpf (None Seen) H 02/12/17 20:50 Ur Culture Indicated? YES (NO) A 02/12/17 20:50 - Clinical Findings Intake & Output: Intake & Output 02/12/17 02/13/17 02/13/17 23:59 07:59 15:59 Intake Total 3750 / 3750 Output Total 1800 / 1800 Balance 1950 / 1950 Weight 86.5 kg Consult Discharge Plan - Plan Referrals: NO,PCP [Primary Care Provider] - - Attending Attestation I examined this patient and my medical decision-making was reviewed with the OPTICAL EFFECTS CAMERA OPERATOR/PA/Advanced Practice Nurse/Resident Physician. I agree with the documented findings, disposition and treatment plan as described except to the extent set forth below. <Gamaliel Vitale M - Last Filed: 02/13/17 19:58> Date of Encounter: 02/13/17 All Systems: A 10-system review of systems was performed and is negative for pertinent findings except as documented above in the HPI. Results - Laboratory Findings CBC and BMP: 02/13/17 03:40 02/13/17 03:40 ABG ABG pH 7.46 pH Units (7.32-7.45) H 02/12/17 20:37 ABG pCO2 28 mmHg (35-45) L 02/12/17 20:37 ABG pO2 73 mmHg (85-104) L 02/12/17 20:37 ABG O2 Saturation 95 % (95-98) 02/12/17 20:37 PT/INR, D-dimer PT 12.5 Seconds (9.4-12.1) H 02/13/17 03:40 Abnormal lab findings: Abnormal lab results WBC 14.7 K/mcL (4.3-11.1) H 02/13/17 03:40 RBC 2.65 M/mcL (4.19-5.50) L 02/13/17 03:40 Hgb 7.5 g/dL (12.9-16.9) L D 02/13/17 03:40 Hct 23.0 % (37.5-50.1) L 02/13/17 03:40 RDW 15.0 % (11.5-14.5) H 02/13/17 03:40 Plt Count 106 K/mcL (140-400) L 02/13/17 03:40 Band Neutrophils % 27.3 % (0-4) H 02/13/17 03:40 Myelocytes % 1.0 % (0) H 02/12/17 19:30 Neutrophils # 13.1 K/mcL (1.6-8.9) H 02/13/17 03:40 Platelet Estimate Slight Decrease (Normal) L 02/13/17 03:40 Large Platelets Present (Not Present) A 02/12/17 19:30 PT 12.5 Seconds (9.4-12.1) H 02/13/17 03:40 APTT 25.0 Seconds (26.0-36.0) L 02/12/17 19:30 ABG pH 7.46 pH Units (7.32-7.45) H 02/12/17 20:37 ABG pCO2 28 mmHg (35-45) L 02/12/17 20:37 ABG pO2 73 mmHg (85-104) L 02/12/17 20:37 ABG HCO3 19.9 mEQ/L (21-27) L 02/12/17 20:37 ABG Base Excess -3.3 mEq/L (-2.0 to 3.0) L 02/12/17 20:37 Sodium 134 mEq/L (136-145) L 02/13/17 03:40 BUN 35 mg/dL (8-26) H 02/13/17 03:40 Creatinine 1.55 mg/dL (0.72-1.25) H 02/13/17 03:40 Est GFR ( Amer) 54 (> 60) L 02/13/17 03:40 Est GFR (Non-Af Amer) 45 (> 60) L 02/13/17 03:40 Glucose 109 mg/dL (70-99) H 02/13/17 03:40 POC Glucose 91 (58-89) H 02/13/17 00:55 Calcium 7.8 mg/dL (8.6-10.8) L D 02/13/17 03:40 Phosphorus 1.6 mg/dL (2.3-4.7) L 02/12/17 19:30 Magnesium 1.3 mg/dL (1.6-2.6) L 02/12/17 19:30 Total Bilirubin 1.5 mg/dL (0.2-1.2) H 02/13/17 03:40 Direct Bilirubin 1.2 mg/dL (0.0-0.5) H 02/12/17 19:30 Alkaline Phosphatase 167 Units/L (38-126) H 02/13/17 03:40 Troponin I 0.14 ng/mL (0-0.03) H* 02/13/17 03:40 Serum Total Protein 5.3 g/dL (6.0-8.3) L 02/13/17 03:40 Albumin 1.7 g/dL (3.5-5.0) L D 02/13/17 03:40 Globulin 3.6 g/dL (2.4-3.5) H 02/13/17 03:40 Albumin/Globulin Ratio 0.5 (1.1-2.2) L 02/13/17 03:40 Ur Specimen Adequacy See below A 02/12/17 20:50 Urine Clarity Turbid (Clear) A 02/12/17 20:50 Urine Protein 100 mg/dL (Neg-Trace) H 02/12/17 20:50 Urine Blood Moderate (Negative) H 02/12/17 20:50 Urine Bilirubin Small (Negative) H 02/12/17 20:50 Ur Leukocyte Esterase Trace (Negative) H 02/12/17 20:50 Urine Microscopic RBC 5-15 per hpf (0-3) H 02/12/17 20:50 Urine Microscopic WBC 3-5 per hpf (0-3) H 02/12/17 20:50 Ur Squamous Epith Cells Many per lpf (None-Few) H 02/12/17 20:50 Amorphous Sediment Many (Few) H 02/12/17 20:50 Urine Bacteria Moderate per hpf (None-Few) H 02/12/17 20:50 Granular Casts Few per lpf (None Seen) H 02/12/17 20:50 Ur Culture Indicated? YES (NO) A 02/12/17 20:50 - Clinical Findings Intake & Output: Intake & Output 02/13/17 02/13/17 02/13/17 07:59 15:59 23:59 Intake Total 3750 / 3750 2150 / 2150 Output Total 1800 / 1800 550 / 550 Balance 1950 / 1950 1600 / 1600 Weight 86.5 kg - Attending Attestation I examined this patient and my medical decision-making was reviewed with the OPTICAL EFFECTS CAMERA OPERATOR/PA/Advanced Practice Nurse/Resident Physician. I agree with the documented findings, disposition and treatment plan as described except to the extent set forth below. Patient seen and examined. Labs, radiology, chart personally reviewed. Agree with resident's history and physical, assessment, plan with following comments: SENIOR LABORATORY TECHNICIAN: Patient follows commands, Pulmonary: Acceptable oxygenation and ventilation Cardiovascular: Patient in septic shock and source is not clear, it could be his PICC line which needs to be removed and culture. GI: Keep NPO for now except medications. Heme: DVT prophylaxis per routine ID: Continue antibiotics and plan to de-escalation. Continue fluid resuscitation and wean off pressors to keep MAP around 65 mmHg. monitor lactic acid level. Renal; urine out put and renal funtion reviewed Endorcine: blood glucose is monitored Lines: all lines checked and no evidence of infections Skin: skin care to prevent pressure ulcers per nursing routine care. Patient has needs wound care. Patient has his care in a different hospital and they know patient very well and he had his surgery in [facility] and he was told to come here just for stabilization, which he is as stable as he can be for transfer and because patient will need senior care care he agreed to be transferred to where he had all his care in [facility] and that was done. I spent 40 min of Critical Care time with this patient. It involved decision making of high complexity to assess, manipulate, and support vital organ system failure and/or to prevent further life threatening deterioration of the patient' s condition. The time involved in the performance of separately reportable procedures was not counted toward critical care time.
[2017-02-13] MEDS ORDERED: Pantoprazole 40 MG VIAL IVPB SCH (09:00)
[2017-02-13] MEDS ORDERED: Aspirin Enteric Coated 81 MG Tablet PO SCH (09:00)
[2017-02-13] MEDS ORDERED: FEBUXOSTAT PO SCH (09:00)
[2017-02-13] MEDS ORDERED: *HR* OxyCODONE/APAP 5/325 TABLET PO PRN (10:28)
[2017-02-13] MEDS ORDERED: Micafungin 100 MG in 0.9 % Sodium Chloride 100 ML IVPB SCH (11:00)
[2017-02-13 13:42] VITALS: BP 114/69
--- NOTE | 2017-02-13 14:00 | Discharge Summary ---
<Mitesh Helton - Last Filed: 02/13/17 14:05> Date of Encounter: 02/13/17 Time of Encounter: 13:57 - Discharge Diagnosis (1) Septic shock Priority: Primary Status: Acute (2) UTI (urinary tract infection) Priority: Secondary Status: Acute Qualifiers: Urinary tract infection type: acute cystitis Hematuria presence: with hematuria Qualified Code(s): N30.01 - Acute cystitis with hematuria (3) TABBY (acute kidney injury) Priority: Secondary Status: Acute (4) Ileostomy in place Priority: Secondary Status: Chronic (5) Prostate cancer Priority: Secondary Status: Acute (6) DVT prophylaxis Priority: Secondary Status: Acute - Discharge Medications Home Medications: Acetaminophen [Tylenol] 1,000 mg PO Q6HR 09/09/16 [History] Aspirin [Lo-Dose Aspirin EC] 81 mg PO DAILY 09/09/16 [History] Ibuprofen [Motrin] 400 mg PO Q6HR 09/09/16 [History] OxyCODONE/APAP 5/325 [Percocet 5/325 MG] 1 tab PO Q6HR PRN 09/09/16 [History] Metoprolol [Lopressor] 25 mg PO BID 02/13/17 [History] Pantoprazole Sodium [Protonix] 40 mg PO DAILY 02/13/17 [History] Allergies/Adverse Reactions: Allergies No Known Allergies Allergy (Verified 09/09/16 17:57) Labs on day of discharge: Labs from last 24 hours 02/13/17 02/13/17 02/13/17 03:40 03:40 03:40 WBC RBC Hgb Hct MCV MCH MCHC RDW Plt Count MPV Seg Neutrophils % Band Neutrophils % Lymphocytes % Monocytes % Neutrophils # Lymphocytes # Monocytes # Platelet Estimate PT INR Sodium 134 L Potassium 3.5 Chloride 108 Carbon Dioxide 19 BUN 35 H Creatinine 1.55 H Est GFR ( Amer) 54 L Est GFR (Non-Af Amer) 45 L BUN/Creatinine Ratio 23 Glucose 109 H POC Glucose Calculated Osmolality 287 Lactic Acid 1.4 Calcium 7.8 L D Total Bilirubin 1.5 H AST 30 ALT 29 Alkaline Phosphatase 167 H Troponin I 0.14 H* Serum Total Protein 5.3 L Albumin 1.7 L D Globulin 3.6 H Albumin/Globulin Ratio 0.5 L 02/13/17 02/13/17 02/13/17 03:40 03:40 00:55 WBC 14.7 H RBC 2.65 L Hgb 7.5 L D Hct 23.0 L MCV 86.8 MCH 28.3 MCHC 32.6 RDW 15.0 H Plt Count 106 L MPV 10.6 Seg Neutrophils % 61.8 Band Neutrophils % 27.3 H Lymphocytes % 5.5 Monocytes % 5.5 Neutrophils # 13.1 H Lymphocytes # 0.8 Monocytes # 0.8 Platelet Estimate Slight Decrease L PT 12.5 H INR 1.2 Sodium Potassium Chloride Carbon Dioxide BUN Creatinine Est GFR ( Amer) Est GFR (Non-Af Amer) BUN/Creatinine Ratio Glucose POC Glucose 91 H Calculated Osmolality Lactic Acid Calcium Total Bilirubin AST ALT Alkaline Phosphatase Troponin I Serum Total Protein Albumin Globulin Albumin/Globulin Ratio Date of admission: 02/13/17 00:29 Primary care physician: PCP NO Consults: 02/13/17 01:28 Consult to Nutrition [CONS] Routine Comment: tpn Consulting Provider: NUTRITION Reason for Dietary Consult: TPN Start and Manage Consult to Pulmonology [CONS] Routine Consulting Provider: Pulm Crit Care & Sleep Tressa Reason for Consult: septic shock Call Completed: No Discharging clinician: Gamaliel Vitale Anticipated date of discharge: 02/13/17 - Patient Status Disposition: Transfer [facility] Condition: Critical Overall status at discharge: patient is not back to baseline - Discharge Instructions Follow Up With: NO,PCP [Primary Care Provider] - - Diet and Activity Activity: other Diet: other (currently NPO except ice chips) - Hospital Course Hospital course: This is a 66 year old male with H hypertension, prostate cancer status post surgery, gout, abdominal wound infection, and previous PICC line infection. The patient received 6L of fluid and is currently on Norepinephrine for septic shock. He is on cefepime, levofloxacin, and vancomycin for antibiotic coverage. Blood cultures were drawn in the ER. His PICC line will be removed with culture ordered fro the tip of the catheter. The patient states that he is willing and now wanting transfer to [place] for continuation of his care as that is where he received his surgery. I called and discussed the patient with [facility] who accept the patient for transfer. The hospitalist requested that the patient be started on micafungin in addition to his current antibiotic coverage. The patient expressed understanding and agreed to this plan of care. - Time Spent with Patient Total time spent providing and/or coordinating discharge services: Physical Examination Vital Signs: Vital Signs, Last 4 Hours Temp Pulse Resp BP Pulse Ox 02/13/17 13:00 93 18 114/69 94 02/13/17 12:00 92 17 112/62 95 02/13/17 11:15 98.0 F 02/13/17 11:00 98 18 101/64 94 02/13/17 10:00 87 17 90/54 96 General appearance: no acute distress, alert Eyes: nonicteric ENT: oropharynx moist Neck: supple Effort: normal Auscultation: bilateral: clear Cardiovascular: regular rate and rhythm Gastrointestinal: normoactive bowel sounds, other (iliostomy present) Extremities: no cyanosis, other (swelling of left great toe) Musculoskeletal: no deformities normal mental status, non-focal exam mood appropriate - Attending Attestation I examined this patient and my medical decision-making was reviewed with the SUPERVISOR FURNACE PROCESS/PA/Advanced Practice Nurse/Resident Physician. I agree with the documented findings, disposition and treatment plan as described except to the extent set forth below. <Gamaliel Vitale M - Last Filed: 02/13/17 20:19> Date of Encounter: 02/13/17 Labs on day of discharge: Labs from last 24 hours 02/13/17 02/13/17 02/13/17 03:40 03:40 03:40 WBC RBC Hgb Hct MCV MCH MCHC RDW Plt Count MPV Seg Neutrophils % Band Neutrophils % Lymphocytes % Monocytes % Neutrophils # Lymphocytes # Monocytes # Platelet Estimate PT INR Sodium 134 L Potassium 3.5 Chloride 108 Carbon Dioxide 19 BUN 35 H Creatinine 1.55 H Est GFR ( Amer) 54 L Est GFR (Non-Af Amer) 45 L BUN/Creatinine Ratio 23 Glucose 109 H POC Glucose Calculated Osmolality 287 Lactic Acid 1.4 Calcium 7.8 L D Total Bilirubin 1.5 H AST 30 ALT 29 Alkaline Phosphatase 167 H Troponin I 0.14 H* Serum Total Protein 5.3 L Albumin 1.7 L D Globulin 3.6 H Albumin/Globulin Ratio 0.5 L 02/13/17 02/13/17 02/13/17 03:40 03:40 00:55 WBC 14.7 H RBC 2.65 L Hgb 7.5 L D Hct 23.0 L MCV 86.8 MCH 28.3 MCHC 32.6 RDW 15.0 H Plt Count 106 L MPV 10.6 Seg Neutrophils % 61.8 Band Neutrophils % 27.3 H Lymphocytes % 5.5 Monocytes % 5.5 Neutrophils # 13.1 H Lymphocytes # 0.8 Monocytes # 0.8 Platelet Estimate Slight Decrease L PT 12.5 H INR 1.2 Sodium Potassium Chloride Carbon Dioxide BUN Creatinine Est GFR ( Amer) Est GFR (Non-Af Amer) BUN/Creatinine Ratio Glucose POC Glucose 91 H Calculated Osmolality Lactic Acid Calcium Total Bilirubin AST ALT Alkaline Phosphatase Troponin I Serum Total Protein Albumin Globulin Albumin/Globulin Ratio Date of admission: 02/13/17 00:29 Primary care physician: PCP NO Consults: 02/13/17 01:28 Consult to Nutrition [CONS] Routine Comment: tpn Consulting Provider: NUTRITION Reason for Dietary Consult: TPN Start and Manage Consult to Pulmonology [CONS] Routine Consulting Provider: Pulm Crit Care & Sleep Tressa Reason for Consult: septic shock Call Completed: No - Hospital Course Hospital course: Mr. Fraga is a 66 year old male - Time Spent with Patient Total time spent providing and/or coordinating discharge services: - Attending Attestation Patient was transferred to the hospital that he has been getting his care after his surgery and patient was stable for transfer.
[2017-02-13] MEDS ORDERED: Aminoglycoside Consult 1 EACH MC ONE (14:02)
[2017-02-13] MEDS ORDERED: Vancomycin 1,500 MG in D5% in Water 250 ML IVPB SCH (16:00)
--- NOTE | 2017-02-14 06:33 | Electrocardiograph Report ---
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
== END 2017-02-13 14:03 | DRG 314 ==
LOC: EMEROO 17:50 → ICNU 02-13 00:29
PROVIDERS: ADMIT Internal Medicine; ATTEND Internal Medicine